=== PATIENT | female | born 1935 | race Caucasian/White ===

== ENCOUNTER 2020-02-10 06:32 | Inpatient (IN) | payer MEDICARE, OTHER ==
[2020-02-06 09:26] VITALS: BMI 30.2
[2020-02-10] MEDS ORDERED: Zolpidem Tartrate 5 MG TAB PO PRN ×2 (06:57→09:00)
[2020-02-10] MEDS ORDERED: Promethazine HCl 25 MG/ML VIAL IM PRN ×3 (06:57→11:30)
[2020-02-10] MEDS ORDERED: diphenhydrAMINE 25 MG CAP PO PRN ×2 (06:57→09:00)
[2020-02-10] MEDS ORDERED: Fentanyl 100 MCG/2 ML VIAL SLOW IVP PRN ×2 (06:57→19:54)
[2020-02-10] MEDS ORDERED: Ondansetron PF 4 MG/2 ML Vial IVP PRN (06:57)
[2020-02-10] MEDS ORDERED: traMADol HCl 50 MG TAB PO PRN ×2 (06:57→09:00)
[2020-02-10] MEDS ORDERED: Vancomycin 1.5 GRAM/300 ML BAG ONE (07:40)
[2020-02-10] MEDS ORDERED: Tranexamic Acid 1,000 MG/10 ML VIAL ONE ×2 (07:40→12:20)
[2020-02-10] MEDS ORDERED: Levofloxacin 500 mg/D5W 100 ml Premix Bag ONE (07:40)
[2020-02-10] MEDS ORDERED: Sodium Chloride 0.9% 100 ML ONE (07:40)
[2020-02-10] MEDS ORDERED: Vancomycin 1 GM/200 ML BAG ONE (07:43)
[2020-02-10] MEDS ORDERED: Midazolam HCl 2 mg/2 ml Vial ONE (07:52)
[2020-02-10] MEDS ORDERED: Fentanyl 100 MCG/2 ML VIAL ONE ×4 (07:52→13:54)
[2020-02-10] MEDS ORDERED: Dexamethasone 4 mg/ml Vial ONE (08:22)
[2020-02-10] MEDS ORDERED: Naloxone HCl 0.4 mg/ml Vial IVP PRN (09:00)
[2020-02-10] MEDS ORDERED: Ketorolac Tromethamine 30 MG/ML VIAL IVP PRN (09:00)
[2020-02-10] MEDS ORDERED: diphenhydrAMINE 50 MG/ML VIAL IVP PRN (09:00)
[2020-02-10] MEDS ORDERED: Promethazine HCl 25 MG SUPP PR PRN (09:00)
[2020-02-10] MEDS ORDERED: Hydrocerin (Eucerin) Cream 120 gm Jar TOP PRN (09:00)
[2020-02-10] MEDS ORDERED: diphenhydrAMINE 50 MG/ML VIAL IM PRN (09:00)
[2020-02-10] MEDS ORDERED: Naloxone HCl 0.4 mg/ml Vial IV PRN (09:00)
[2020-02-10] MEDS ORDERED: Lidocaine 1% PF 5 ML VIAL ONE (09:27)
[2020-02-10] MEDS ORDERED: Glycopyrrolate 0.2 MG/ML 5 ML SYRINGE ONE (09:27)
[2020-02-10] MEDS ORDERED: Rocuronium Bromide 10 MG/ML (10ML VIAL) ONE (09:27)
[2020-02-10] MEDS ORDERED: PROPOFOL 200 MG/20 ML VIAL ONE (09:27)
[2020-02-10] MEDS ORDERED: Bupivacaine HCl 0.5%/Epinephrine 1:200,000/PF 30 ml Vial ONE (09:27)
[2020-02-10] MEDS ORDERED: Dexamethasone 20 MG/5 ML VIAL ONE (09:27)
[2020-02-10] MEDS ORDERED: PHENYLEPHRINE-NS 100 MCG/ML 10 ML SYRINGE ONE (09:27)
[2020-02-10] MEDS ORDERED: Ondansetron HCl/PF 4 MG/2 ML Vial IVP PRN (11:30)
[2020-02-10] MEDS ORDERED: Promethazine HCl 25 MG/ML VIAL SLOW IVP PRN (11:30)
--- NOTE | 2020-02-10 12:17 | RAD ---
Exam: XR Hip Rt 2-3 View HISTORY: Postoperative right total hip replacement. COMPARISON: 01/19/2020 FINDINGS: There has been interval postoperative changes related to placement of a right total hip prosthesis. N o hardware complication is seen. No acute fracture, dislocation, or other acute osseous abnormality is identified. Subcutaneous emphysema seen about the right hip related to recent postoperative change. Surgical clip s overlie the left inguinal region and medial left thigh. Phleboliths overlie the pelvis. IMPRESSION: Interval postoperative changes related to right total hip replacement.
[2020-02-10] MEDS ORDERED: Meperidine HCl/PF 25 MG/ML VIAL ONE (12:45)
[2020-02-10] MEDS: Ketorolac Tromethamine 30 MG/ML VIAL IVP SCH ×2 (15:36→21:23)
[2020-02-10] MEDS: Ondansetron PF 4 MG/2 ML Vial IVP PRN (15:37)
[2020-02-10] MEDS: Acetaminophen 325 MG TAB PO PRN (15:42)
[2020-02-10] MEDS: traMADol HCl 50 MG TAB PO PRN (15:42)
[2020-02-10] MEDS: Sodium Chloride 0.9% 1,000 ML IV SCH ×2 (15:44→18:41)
[2020-02-10] MEDS: Senokot S 8.6-50 MG TAB PO SCH ×2 (18:40→19:45)
[2020-02-10] MEDS: Aspirin 81 mg Enteric Coated Tablet PO SCH ×2 (18:41→21:22)
[2020-02-10] MEDS: Multivitamin W/ Minerals 1 TAB PO SCH (18:41)
[2020-02-10] MEDS: Losartan/Hydrochlorothiazide 100 mg/25 mg Tablet PO SCH (18:41)
[2020-02-10] MEDS: Carvedilol 6.25 MG TAB PO SCH ×2 (18:41→21:22)
[2020-02-10] MEDS: Ferrous Gluconate 324 MG TAB PO SCH ×2 (18:41→19:45)
[2020-02-10] MEDS: CEFAZOLIN 2 GM in Premix Bag 1 BAG IVPB SCH (21:22)
[2020-02-11] MEDS ORDERED: Sodium Chloride 0.9% 1,000 ML IV SCH (00:15)
[2020-02-11] MEDS: Sodium Chloride 0.9% 1,000 ML IV SCH ×3 (02:21→23:18)
[2020-02-11 07:03] LABS: Hemoglobin 10.3 g/dL (12.0-16.0); Mean Corpuscular HGB CONC 33.2 g/dL (32.0-36.0); Mean Corpuscular Hemoglobin 30.7 pg (27.0-31.0); Mean Corpuscular Volume 92.6 fL (78.0-98.0); Mean Platelet Volume 6.9 fL (7.4-10.4); Platelet Count 168 thou/uL (130-400); RBC Distribution Width 12.8 % (11.5-14.5); Red Blood Cell (RBC) Count 3.37 mill/uL (4.20-5.40)
[2020-02-11 07:38] LABS: Anion Gap 10 mmol/L (10-20); BUN (Urea Nitrogen) 26 mg/dL (9.8-20.1); Calc. Creatinine Clearance 64 mL/min (70-130); Calcium 7.5 mg/dL (7.8-10.44); Carbon Dioxide 22 mmol/L (23-31); Chloride 102 mmol/L (98-107); Estimated GFR-MDRD 75; Glucose 98 mg/dL (83-110); Potassium 4.2 mmol/L (3.5-5.1); Sodium 130 mmol/L (136-145)
[2020-02-11] MEDS: Carvedilol 6.25 MG TAB PO SCH ×2 (09:55→21:29)
[2020-02-11] MEDS: Losartan/Hydrochlorothiazide 100 mg/25 mg Tablet PO SCH (09:55)
[2020-02-11] MEDS: Aspirin 81 mg Enteric Coated Tablet PO SCH ×2 (09:55→21:28)
[2020-02-11] MEDS: Ferrous Gluconate 324 MG TAB PO SCH ×2 (09:55→21:29)
[2020-02-11] MEDS: Senokot S 8.6-50 MG TAB PO SCH ×2 (09:55→21:28)
[2020-02-11] MEDS: CEFAZOLIN 2 GM in Premix Bag 1 BAG IVPB SCH (09:56)
[2020-02-11] MEDS: Ketorolac Tromethamine 30 MG/ML VIAL IVP SCH ×3 (09:56→21:29)
[2020-02-11] MEDS: Multivitamin W/ Minerals 1 TAB PO SCH (09:57)
[2020-02-11] MEDS: Acetaminophen 325 MG TAB PO PRN (11:15)
[2020-02-11] MEDS: traMADol HCl 50 MG TAB PO PRN (11:18)
[2020-02-12 05:23] LABS: Hemoglobin 10.7 g/dL (12.0-16.0); Mean Corpuscular HGB CONC 33.5 g/dL (32.0-36.0); Mean Corpuscular Hemoglobin 30.4 pg (27.0-31.0); Mean Corpuscular Volume 90.9 fL (78.0-98.0); Mean Platelet Volume 6.7 fL (7.4-10.4); Platelet Count 146 thou/uL (130-400); RBC Distribution Width 12.7 % (11.5-14.5); Red Blood Cell (RBC) Count 3.51 mill/uL (4.20-5.40); White Blood Cell (WBC) Count 9.6 thou/uL (4.8-10.8)
[2020-02-12] MEDS: Ketorolac Tromethamine 30 MG/ML VIAL IVP SCH ×2 (05:50→13:24)
[2020-02-12] MEDS: Ondansetron PF 4 MG/2 ML Vial IVP PRN (06:01)
[2020-02-12] MEDS: Senokot S 8.6-50 MG TAB PO SCH (09:02)
[2020-02-12] MEDS: Carvedilol 6.25 MG TAB PO SCH (09:03)
[2020-02-12] MEDS: Multivitamin W/ Minerals 1 TAB PO SCH (09:03)
[2020-02-12] MEDS: Aspirin 81 mg Enteric Coated Tablet PO SCH (09:03)
[2020-02-12] MEDS: Losartan/Hydrochlorothiazide 100 mg/25 mg Tablet PO SCH (09:03)
[2020-02-12] MEDS: Ferrous Gluconate 324 MG TAB PO SCH (09:03)
[2020-02-12] MEDS: Sodium Chloride 0.9% 1,000 ML IV SCH (09:04)
[2020-02-12] MEDS: Acetaminophen 325 MG TAB PO PRN ×2 (09:12→13:22)
[2020-02-12] MEDS: traMADol HCl 50 MG TAB PO PRN ×2 (09:12→13:22)
[2020-02-12 13:08] VITALS: BP 121/68; TEMP 98
--- NOTE | 2020-02-17 11:33 | OP ---
DATE OF PROCEDURE: 02/10/2020 DIAGNOSIS: Degenerative arthritis of the right hip. PROCEDURE: Right total hip arthroplasty using a cemented Jim Accolade stem, size 4, -5, 36 head; 52 mm Tritanium II [place] cup, with 36 mm X3 liner. STAPLER HAND: Fito. BLOOD LOSS: 200. SPECIMEN: None. DRAINS: None. COMPLICATIONS: None. PROCEDURE IN DETAIL: The patient was taken to the operating room, where anesthesia was induced. The patient was positioned on the hip holding device on the operating table. The clinical assistant was integral in the positioning of the patient and padding of the patient, protecting the bony prominences and nerves. The hip was then prepped and draped in the usual sterile fashion. A lateral incision was made centered over the greater trochanter. Dissection was carried down to the IT band, which was divided distally, extended proximally. Self-retraining retractors were placed in the wound. A small portion of the abductor was taken down, about one-third or less. Hip capsule tissue was excised and hip was dislocated. Femoral neck was cut with an oscillating saw. The acetabulum was circumferentially exposed. During this portion of the procedure, surgeon removed the labral tissue. The rehabilitation assistant reamed from their side of the table. Reaming was carried down to the bottom of the fovea and expanded to get a good press-fit. Appropriate cup was impacted into place and a good press-fit checked. Polyethylene liner was deployed. Attention was turned back to the femur. The rehabilitation assistant dislocated the femur again and delivered the proximal femur up into the wound while the surgeon opened the femur with a cookie cutter and T-handle and broached up to the appropriate size stem. In this case, this was a cemented Accolade stem. A trial reduction was performed. Once appropriate head length was determined, trials were removed and irrigation performed. The canal was plugged with a [place] plug. Cement was then pressurized and appropriate stem was centered into place. Trials were performed again and the appropriate head was placed along with a carefully dried trunnion. Hip was reduced. Abductor was repaired with #5 Ethibond and #2 Vicryl. The IT band was repaired with #2 Vicryl, #2 Quill, subcutaneous tissue closed with 0 Quill, skin was closed with 2-0 Monoderm and skin glue was applied. There were no complications. Job ID: [id number]
== END 2020-02-12 14:32 | disposition home or self-care (01) | DRG 470 ==
LOC: SURG A 06:32 → SJJU 14:50
PROVIDERS: ADMIT Orthopaedic Surgery; ATTEND Orthopaedic Surgery
PROC: 0SR90J9 Replacement of Right Hip Joint with Synthetic Substitute, Cemented, Open Approach (ICD-10-PCS; principal; 2020-02-10)
DX: M16.11 Unilateral primary osteoarthritis, right hip (principal); I42.9 Cardiomyopathy, unspecified; I10 Essential (primary) hypertension; E78.5 Hyperlipidemia, unspecified; G89.29 Other chronic pain; M79.7 Fibromyalgia; Z11.59 Encounter for screening for other viral diseases; Z87.891 Personal history of nicotine dependence
CPT/HCPCS: 36415; 80048; 85027; C1713; C1776; J0670; J0690; J1100; J1885; J1956; J2175; J2250; J2405; J2704; J3010; J3370; J3490

== ENCOUNTER 2020-02-20 17:11 | Emergency (ER) | payer MEDICARE ==
[~2020-02-20 17:11] MED LIST: Iopamidol-370 76% 500 ML 1 ML ONE
[2020-02-20 18:48] LABS: Hemoglobin 13.2 g/dL (12.0-16.0); Mean Corpuscular HGB CONC 33.1 g/dL (32.0-36.0); Mean Corpuscular Hemoglobin 30.8 pg (27.0-31.0); Mean Corpuscular Volume 93.1 fL (78.0-98.0); Mean Platelet Volume 6.4 fL (7.4-10.4); Platelet Count 338 thou/uL (130-400); RBC Distribution Width 14.3 % (11.5-14.5); Red Blood Cell (RBC) Count 4.27 mill/uL (4.20-5.40); White Blood Cell (WBC) Count 20.5 thou/uL (4.8-10.8)
[2020-02-20 19:10] LABS: Anisocytosis SLIGHT = 6-15 cells (100X) (0-5/hpf); Band 16 % (5-11); Eosinophils 1 % (0-10); Lymphocytes 1 % (21-51); MDiff Complete? YES; Monocytes 3 % (0-10); Neutrophil 79 % (42-75); Platelet Morphology Comment Appears Adequate; Polychromasia SLIGHT = 2-3 cells (100X) (0-2/hpf)
[2020-02-20 19:21] LABS: ALT (SGPT) 32 U/L (8-55); AST (SGOT) 28 U/L (5-34); Albumin 3.8 g/dL (3.4-4.8); Alkaline Phosphatase 94 U/L (40-110); Anion Gap 18 mmol/L (10-20); BUN (Urea Nitrogen) 19 mg/dL (9.8-20.1); Bilirubin, Total 0.6 mg/dL (0.2-1.2); Calc. Creatinine Clearance 0 mL/min (70-130); Carbon Dioxide 17 mmol/L (23-31); Chloride 100 mmol/L (98-107); Estimated GFR-MDRD 68; Globulin 3.1 g/dL (2.4-3.5); Glucose 106 mg/dL (83-110); Lipase 31 U/L (8-78); Potassium 4.3 mmol/L (3.5-5.1); Protein, Total 6.9 g/dL (6.0-8.3); Sodium 131 mmol/L (136-145)
--- NOTE | 2020-02-20 19:35 | CT ---
CT ABDOMEN WITH CONTRAST CT PELVIS WITH CONTRAST: DATE: 02/20/2020 HISTORY: 85-year-old female with constipation and intermittent cramping abdominal pain COMPARISON: None TECHNIQUE: IV injection of iodinated contrast media: administered. Oral contrast media:Not administered FINDINGS: Metallic total right hip replacement arthroplasty hardware causes streak artifact, obscuring portions of the pelvic cavity and soft tissues around the right hip. There is a an approximately 16 x 5.5 x 3 cm mass in the subcutaneous fat broadly abutting the muscles around the right hip, with density of approximately 1.5 Hounsfield units consistent with fluid. Margins are irregular. There is surrounding fat stranding. No pelvic fracture or dislocation. Distended but otherwise normal urinary bladder. Atherosclerotic calcification without aneurysm of abdominal aorta. No major pathology identified involving liver, kidneys, adrenals, pancreas, or spleen. No small bowel dilation. No colonic diverticulitis. Large amount of colonic stool moderately distending the rectum. Moderate to large volume of colonic stool in the rest of the colon. Appendix not identified with certainty. IMPRESSION: 1) evidence for constipation. 2) large fluid collection in the superficial subcutaneous fat lateral to the right hip and right glut eal musculature. This is presumably a hematoma or seroma. Abscess is not excluded. 3) status post total right hip replacement arthroplasty
[2020-02-20 20:15] LABS: Bilirubin Negative (Negative); Blood, Urine Negative (Negative); Clarity Clear (Clear); Glucose, Urine (Dipstick) Normal (Negative); Ketone, Urine Negative (Negative); Leukocyte Negative Leu/uL (Negative); Nitrite Negative (Negative); Protein, Urine (Dipstick) Negative (Neg-Trace); Specific Gravity, Urine 1.012 (1.002-1.036); Urobilinogen Normal mg/dL (Less than 2); pH, Urine 7.5 (5.0-9.0)
--- NOTE | 2020-02-20 20:22 | RAD ---
RADIOGRAPH CHEST 1 VIEW: DATE: 02/20/2020 TIME: 8:03 PM HISTORY: 85-year-old female with leukocytosis COMPARISON: 01/18/2013 FINDINGS: Subtle finding of region of mildly increased attenuation in the left lateral lung base. This apparent difference could be due to positional differences, increase in pericardial fat pad, atelectasis, or early pneumonia. No consolidation in the rest of the visualized lung izaguirre. No pulmonary edema or pneumothorax. IMPRESSION: Nonspecific mild density at base of left lower lobe. Recommend short interval follow-up.
[2020-02-20] MEDS ORDERED: Cefepime 1 GM VIAL ONE (21:32)
[2020-02-20] MEDS ORDERED: cefTRIAXone\\ROCEPHIN 1 GM VIAL ONE (21:32)
== END 2020-02-20 22:57 | disposition home or self-care (01) ==
LOC: ERS 17:11
DX: J18.9 Pneumonia, unspecified organism (principal); R33.9 Retention of urine, unspecified; K56.41 Fecal impaction; I10 Essential (primary) hypertension; Z79.899 Other long term (current) drug therapy
CPT/HCPCS: 51702; 71045; 74177; 80053; 81003; 83690; 85025; 96365; J0692; J0696; Q9967

== ENCOUNTER 2020-09-08 13:22 | Outpatient (CLI) | payer MEDICARE | END 2020-09-08 13:23 | disposition home or self-care (01) | LOC: BICMAMMO 13:22 | PROVIDERS: ATTEND Family Medicine | DX: Z13.820 Encounter for screening for osteoporosis (principal); M85.852 Other specified disorders of bone density and structure, left thigh | CPT/HCPCS: 77080 ==

== ENCOUNTER 2022-12-05 09:55 | Outpatient (CLI) | payer OTHER | END 2022-12-05 09:56 | disposition home or self-care (01) | LOC: BICMAMMO 09:55 | PROVIDERS: ATTEND Family Medicine | DX: Z12.31 Encounter for screening mammogram for malignant neoplasm of breast (principal); Z91.89 Other specified personal risk factors, not elsewhere classified | CPT/HCPCS: 77063; 77067 ==